=== PATIENT | female | born 1950 | race Caucasian/White ===

== ENCOUNTER 2020-03-24 07:57 | Day surgery (SDC) | payer MEDICARE, OTHER, SELFPAY ==
[2020-03-24] VITALS (7 sets, daily range): BP systolic 99–141; BP diastolic 50–70; PULSE 55–78; RESP 15–16; TEMP 36.1–36.7; O2SAT 94–100; BMI 33.5
--- NOTE | 2020-03-24 09:00 | PM.PREOP ---
Pre-operative Note COVID-19 COVID-19 status: Negative Result date/Date tested (Pos, Neg/Pending): 03/21/20 Interval Note History & Physical reviewed/Exam performed by Physician: Yes Changes to H&P: No ASA Class (for procedural sedation): I
[2020-03-24] MEDS: LACTATED RINGERS 1,000 ML 150 ML IV (09:14)
--- NOTE | 2020-03-24 09:51 | PM.OP.ENDO ---
Operative Date/Time/Diagnoses Date of procedure: 03/24/20 Procedure Notes SCOAP/Timeout: Performed Procedure in detail: The patient had topical anesthetic applied to oropharynx. She was placed in left lateral decubitus position and underwent IV sedation directed by the surgeon consisting of fentanyl and Versed. A bite block was inserted and the scope was advanced through it into the esophagus. The esophagus was unremarkable. GE junction was noted at 38 cm from the incisors. The stomach insufflated well. There were no lesions seen in the body, antrum or at the incisura. The pyloric channel was narrowed but patent. The duodenum was unremarkable to the 3rd part. The scope was brought back into the stomach and retroflexed. The proximal stomach normal in appearance. There was no evidence of a hiatal hernia.. The scope was straightened and brought out through the esophagus again. No lesions or narrowing was seen. The scope was removed and the patient tolerated the procedure well. The patient was repositioned. She was given additional sedation. The patient was placed in the left lateral decubitus position and underwent IV sedation directed by the surgeon consisting of fentanyl and Versed. Digital exam was unremarkable except for mild decrease in sphincter tone. The scope was inserted and advanced through the rectum into the sigmoid, descending, transverse, and ascending colon. They were normal in appearance. The cecum was reached identified by the ileocecal valve and the appendiceal opening. The scope was gradually brought out. No Polyps were found. The scope ultimately was retroflexed in the rectum. The appearance was normal. The scope was removed and the patient tolerated the procedure well. Prep was very good Scope withdrawal time: 7-1/2 minutes Sedation minutes: 29 Specimen(s): none sent Complications: none Impression: Normal exam Post-procedure Recommendations: Colonscopy in 5 years (Due to family history of her mother having colon cancer) Plan for aftercare: Will schedule a swallowing study to see if there is a motility problem with her esophagus that might be causing your food stick. Follow up: as needed (After swallowing study) Disposition: PACU
[2020-03-24] MEDS: LIDOCAINE 4% SOLN 50 ML 20 ML TOP (10:12)
[2020-03-24] MEDS: TETRACAINE/BENZOCAINE/BUTAMBEN (CETACAINE) BOTTLE 1 SPRAY TOP (10:12)
[2020-03-24] MEDS: fentaNYL 250 MCG/5 ML INJ IV (10:13)
[2020-03-24] MEDS: MIDAZOLAM 5 MG/5 ML VIAL IV (10:14)
== END 2020-03-24 11:22 | disposition home or self-care (01) ==
PROVIDERS: PCP Family Medicine; Referring Provider Specialist; Visit Provider Specialist
PROC: 0DJ08ZZ Inspection of Upper Intestinal Tract, Via Natural or Artificial Opening Endoscopic (ICD-10-PCS; CPT 43235; principal; 2020-03-24 09:45)
PROC: 0DJD8ZZ Inspection of Lower Intestinal Tract, Via Natural or Artificial Opening Endoscopic (ICD-10-PCS; CPT 45378; 2020-03-24 09:45)
DX: Z12.11 Encounter for screening for malignant neoplasm of colon (principal); K21.9 Gastro-esophageal reflux disease without esophagitis; Z80.0 Family history of malignant neoplasm of digestive organs; E78.00 Pure hypercholesterolemia, unspecified; F32.9 Major depressive disorder, single episode, unspecified
CPT/HCPCS: 43235; G0105; 99152; 99153; J2250; J3010